=== PATIENT | male | born 1970 | race Caucasian/White ===

== ENCOUNTER 2016-10-26 12:49 | Emergency (ER) | payer MEDICAID ==
--- NOTE | 2016-10-29 16:46 | ER ---
ADMIT: 10/26/2016 RM/LOC: [facility] MR#: [id number] [address] [id number] [place] [address] [place] [id number] Emergency Room Report SEX: M AGE: 46 : 1970 DATE: 10/26/2016 HISTORY OF PRESENT ILLNESS: The patient is a 46-year-old, who presents to the emergency room complaining of right hand paresthesia. He does have no other neurological issues. He said it all started yesterday. He states that he slept all day yesterday, tingling sensation in his right hand. He really does not recall doing anything, but sleep yesterday. He does have some vision problems in the form of glaucoma. He says, I did not even take my medications for his diabetes nor for his glaucoma. He saw his doctor a month and a half ago and has been cared for by [facility]. He denies any vertigo, dizziness, or lightheadedness. PAST MEDICAL HISTORY: Diabetes, hypertension, a mini stroke, questionable CVA. He said they diagnosed him with a stroke in [place]. MEDICATIONS: He has prescription for Lantus. He goes to [facility] for his medications. He also takes Plavix among his medications. He takes; 1. Metformin. 2. Lisinopril. 3. Combigan drops for his eyes. 4. Lipitor. PHYSICAL EXAMINATION: VITAL SIGNS: Blood pressure is 151/89 with a heart rate of 102, O2 sats 96%. GENERAL: He is mildly anxious. He is alert and oriented. HEENT: Normal inspection. Right eye deviates to the right side. RESPIRATIONS: No distress. CVS: Tachycardic. NEURO: Cranial nerves II through XII are intact. He says his numbness is gone. No paresthesia in his right hand. Negative for Arabella sign. SKIN: Good color and turgor. EXTREMITIES: Nontender. LABORATORY DATA: White blood cell count 11.1, with a chemistry glucose 175, and GFR of 80. His head CT was read as negative. CLINICAL IMPRESSION: Right hand numbness, no LOC, no neurological changes. Prior to getting discharged, he left the ER. We were unable to give him discharge instructions or get final discharge plan. LEE Perkins / Zafar Giraldo MD / sandyl JOB #: [id number] CC: Zafar Giraldo MD, Attending Physician UNKNOWN, Family Physician
== END 2016-10-26 15:50 | disposition home or self-care (01) ==
LOC: ER 12:49
DX: R20.0 Anesthesia of skin (principal); E11.9 Type 2 diabetes mellitus without complications; I10 Essential (primary) hypertension; Z86.73 Personal history of transient ischemic attack (TIA), and cerebral infarction without residual deficits; Z79.84 Long term (current) use of oral hypoglycemic drugs; Z79.899 Other long term (current) drug therapy; Z79.4 Long term (current) use of insulin; Z79.01 Long term (current) use of anticoagulants